=== PATIENT | female | born 1995 | race Caucasian/White ===

== ENCOUNTER → 2018-03-21 15:43 | Outpatient (CLI) | payer OTHER, SELFPAY ==
--- NOTE | 2018-03-21 16:26 | XR_ITS ---
EXAM: XR cervical spine 5V HISTORY: Neck pain ITS.REASON: BACK AND NECK PAIN ORDERING PHYSICIAN: Brianna Herrera PATIENT AGE: 22 years COMPARISON: None FINDINGS: Normal alignment. No fracture or dislocation. No lytic or blastic change. No significant degenerative change. The disc spaces are preserved. C7 is not well-visualized on the lateral view. There is a faint outline of C7 seen on the swimmer's view which is normal in alignment. Neural foramina are widely patent IMPRESSION: Negative cervical spine
--- NOTE | 2018-03-21 16:26 | XR_ITS ---
EXAM: XR thoracic spine 3V HISTORY: ITS.REASON: BACK AND NECK PAIN Comparison: None FINDINGS: Normal alignment. No fracture or dislocation. No lytic or blastic change. There is mild degenerative disc disease in the midthoracic spine with decrease in the disc space and mild osteophyte formation. IMPRESSION: 1. No acute finding. 2. Mild degenerative disc disease midthoracic spine
--- NOTE | 2018-03-21 16:26 | XR_ITS ---
EXAM: XR lumbar spine min 4V HISTORY: Low back pain ITS.REASON: BACK AND NECK PAIN ORDERING PHYSICIAN: Brianna Herrera PATIENT AGE: 22 years COMPARISON: None FINDINGS: Normal alignment. No fracture or dislocation. No lytic or blastic change. No significant degenerative change. The disc spaces are preserved. Unremarkable SI joints IMPRESSION: Negative lumbar spine
[2018-03-21 16:39] LABS: Activated Partial Thrombo Time 24.3 seconds (23.6-34.0); INR 0.91 (0.9-1.1); Prothrombin Time 9.4 seconds (9.4-11.8)
[2018-03-21 16:54] LABS: Basophils % 0.3 % (0.1-2.0); Eosinophils # 0.1 K/mm3 (0.0-0.4); Eosinophils % 1.4 % (0.1-12.0); Hematocrit 40.2 % (37.0-47.0); Hemoglobin 13.4 g/dL (12.2-16.2); Lymphocytes # 2.5 K/mm3 (0.7-4.5); Lymphocytes % 26.7 K/mm3 (10-50); Mean Corpuscular HGB Conc 33.3 g/dL (31.8-35.4); Mean Corpuscular Hemoglobin 28.5 pg (27.0-31.2); Mean Corpuscular Volume 85.4 fl (81-99); Mean Platelet Volume 7.3 fl (7.4-10.4); Monocytes % 10.7 % (1.7-9.3); Neutrophils # 5.7 K/mm3 (1.8-7.8); Neutrophils % 60.9 % (37.0-80.0); Platelet Count 332 K/mm3 (142-424); Red Blood Count 4.71 M/mm3 (4.20-5.40); Red Cell Distribution Width 13.6 % (11.5-17.5); White Blood Count 9.3 K/mm3 (4.8-10.8)
[2018-03-21 18:11] LABS: Alanine Aminotransferase 49 U/L (12-78); Albumin Level 3.2 gm/dL (3.4-5.0); Albumin/Globulin Ratio 0.8 (1.1-1.8); Alkaline Phosphatase 84 U/L (46-116); Anion Gap 12.7 mEq/L (5-15); Aspartate Amino Transferase 28 U/L (15-37); Bilirubin,Total 0.2 mg/dL (0.2-1.0); Blood Urea Nitrogen 10 mg/dL (7-18); Calcium 9.1 mg/dL (8.5-10.1); Carbon Dioxide 26 mmol/L (21.0-32.0); Chloride 104 mmol/L (98-107); Chol/HDL Ratio 3.2 (1-3.5); Cholesterol 159 mg/dL (140-200); Creatinine,Serum 0.69 mg/dL (0.55-1.02); Estimated Glomerular Filt Rate 105 ml/min (>60); GFR (African American) 128 ML/MIN (>60); Glucose 91 mg/dL (74-106); HDL Cholesterol 50 mg/dL (29-89); LDL Cholesterol 64 mg/dL (0-130); Potassium 4.7 mmoL/L (3.5-5.1); Sodium 138 mmol/L (136-145); Thyroid Stimulating Hormone 0.95 uIU/ml (0.358-3.740); Total Protein,Serum 7.2 gm/dL (6.4-8.2); Triglycerides 223 mg/dL (30-200); VLDL Cholesterol 45 mg/dL (0-40)
== END ==
PROVIDERS: PCP Physician Assistant; Visit Provider Nurse Practitioner Family
DX: M54.9 Dorsalgia, unspecified (principal); M54.2 Cervicalgia; T14.8XXA Other injury of unspecified body region, initial encounter; F41.9 Anxiety disorder, unspecified
CPT/HCPCS: 36415; 72050; 72072; 72110; 80053; 80061; 84443; 85025; 85610; 85730

== ENCOUNTER 2018-03-28 07:48 | Outpatient (RCR) | payer OTHER, SELFPAY | END 2018-04-30 11:36 | disposition home or self-care (01) | LOC: PT 07:48 | PROVIDERS: Visit Provider Nurse Practitioner Family | DX: M54.5 Low back pain (principal) | CPT/HCPCS: 97163 ==

== ENCOUNTER → 2018-06-19 11:22 | Outpatient (CLI) | payer OTHER, SELFPAY ==
[2018-06-19 11:25] LABS: Adenovirus,PCR Not Detected (NotDetected); Bordetella Pertussis Not Detected (NotDetected); Chlamydophila Pneumoniae, PCR Not Detected (NotDetected); Coronavirus 229E Not Detected (NotDetected); Coronavirus NL63 Not Detected (NotDetected); Coronovirus HKU1,PCR Not Detected (NotDetected); Human Metapneumovirus Not Detected (NotDetected); Influenza A, PCR Not Detected (NotDetected); Influenza AH1, 2009 Not Detected (NotDetected); Influenza AH1, PCR Not Detected (NotDetected); Influenza AH3,PCR Not Detected (NotDetected); Influenza B, PCR Not Detected (NotDetected); Mycoplasma Pneumoniae, PCR Not Detected (NotDetected); Parainfluenza 1, PCR Not Detected (NotDetected); Parainfluenza 2, PCR Not Detected (NotDetected); Parainfluenza 3, PCR Not Detected (NotDetected); Parainfluenza 4, PCR Not Detected (NotDetected); Respiratory Syncytial Virus Not Detected (NotDetected); Rhinovirus/Enterovirus Not Detected (NotDetected)
[2018-06-19 15:56] LABS: Coronavirus OC43 Detected (NotDetected)
== END ==
PROVIDERS: PCP Nurse Practitioner Family; Visit Provider Nurse Practitioner Family
DX: R05 Cough (principal)
CPT/HCPCS: 87486; 87581; 87633; 87798

== ENCOUNTER → 2020-02-27 14:53 | Outpatient (CLI) | payer OTHER, SELFPAY ==
--- NOTE | 2020-02-27 14:59 | XR_ITS ---
PROCEDURE: XR WRIST RT 2V CLINICAL INDICATION: RIGHT WRIST PAIN COMPARISON: No exams were available for comparison FINDINGS: No fracture or dislocation. No lytic or blastic change. There is normal mineralization. The joint spaces are well-preserved. No significant degenerative/arthritic changes. No erosive changes evident. Other findings:None. IMPRESSION: No acute findings. Dictated by: Caden Esparza MD 02/27/2020 15:54 Caden Esparza MD in [facility] 02/27/2020 15:54
== END ==
PROVIDERS: PCP Nurse Practitioner Family; Visit Provider Nurse Practitioner Family
DX: M25.531 Pain in right wrist (principal)
CPT/HCPCS: 73100

== ENCOUNTER 2021-10-13 20:15 | Outpatient (CLI) | payer OTHER, SELFPAY ==
[2021-10-13 21:08] VITALS: BP 135/76; PULSE 102; RESP 18; TEMP 37.4; O2SAT 98
[2021-10-13 21:22] LABS: Microscopic, Urine URINE MICROSCOPIC (MICROSCOPIC)
[2021-10-13 21:51] LABS: Appearance,Urine CLEAR (Clear); Bilirubin,Urine Negative (Negative); Blood, Urine Negative (Negative); Color,Urine YELLOW (Yellow); Glucose,Urine (UA) Negative (Negative); Ketones,Urine Negative (Negative); Leukocyte Esterase,Urine Negative (Negative); Nitrate,Urine Negative (Negative); PH,Urine 7.5 (5.0-8.5); Protein,Urine Negative (Negative); Specific Gravity, Urine 1.015 (1.005-1.030); Urobilinogen,Urine 0.2 EU/dl (0.2)
[2021-10-13 22:01] LABS: Amphetamine/Metha Screen,Urine Negative ng/ml (<1000); Barbiturates Screen,Urine Negative ng/ml (<200); Fetal Fibronectin (Rapid) Negative (Negative)
[2021-10-13 22:02] LABS: Benzodiazepines Screen,Urine Negative ng/ml (<200); Cannabinoid Screen,Urine Negative ng/ml (<50)
[2021-10-13 22:03] LABS: Cocaine Screen,Urine Negative ng/ml (<300)
[2021-10-13 22:04] LABS: Methadone Screen,Urine Negative ng/ml (<300)
[2021-10-13 22:05] LABS: Opiate Screen,Urine Negative ng/ml (<300); Phencyclidine Screen,Urine Negative ng/ml (<25)
[2021-10-13 22:14] LABS: Bacteria,Urine Trace /lpf; WBC,Urine Occasional #/hpf (0-3)
== END 2021-10-13 21:56 | disposition home or self-care (01) ==
LOC: OBOUT 20:19 → OB 20:21
PROVIDERS: Visit Provider Obstetrics & Gynecology
DX: O47.02 False labor before 37 completed weeks of gestation, second trimester (principal); Z3A.26 26 weeks gestation of pregnancy
CPT/HCPCS: 59025; 80305; 81001; 82731; 96365; G0463

== ENCOUNTER 2022-02-24 12:25 | Emergency (ER) | payer OTHER, SELFPAY ==
[2022-02-24 12:28] VITALS: BP 147/75; PULSE 76; RESP 16; TEMP 36.9; O2SAT 100; BMI 27.4
[2022-02-24 12:35] VITALS: BMI 27.4
--- NOTE | 2022-02-24 12:44 | PC.NURSE ---
ANGEL DIAZ at
--- NOTE | 2022-02-24 12:47 | HMH.EDGENADL ---
Discharge Plan Disposition Patient Disposition: Home, Self-Care Condition: Good Prescriptions Prescriptions: New ibuprofen 600 mg tablet 600 mg PO Q6H PRN (Reason: moderate pain ) Qty: 20 0RF Referrals Follow up/Referrals: Dayanna Mccollum [Primary Care Provider] - See instructions Activity Restrictions/Add. Instructions Additional Instructions/Restrictions: Ibuprofen for pain. Additional instructions for BACK PAIN: See your physician for further care, call for appointment. Return immediately if back pain becomes intolerable, or if fever, numbness or weakness of your legs, loss of control of your bowels or bladder. Clinical Impressions Clinical Impression: Low back pain Instructions Patient Instructions: DI for Low Back Pain Discharge ED Provider: Ishan Hoover General Adult HPI General Chief complaint: PAIN Stated complaint: lower back pain Time Seen by Provider: 02/24/22 12:40 Mode of Arrival: Ambulatory Source of Information: Patient Limitations: No Limitations Description of Symptoms (Recalled from ER Triage Doc. by RN): Pt reports lower back pain that began this morning upon waking up. Pt reports pain is in the center of her lower back, reports pain worsens with movement. Pt states when she bends over pain radiates up her back. Pt describes pain as shapr in nature. Pt states has had decreased urination since yesterday, reports she only urinated x2 yesterday. Pt reports nausea. History of Present Illness HPI narrative: Reports midline lower back pain since she awakened this morning. The pain worsens with movement. Describes it as sharp. Denies any pain into her legs. No numbness or weakness. Denies loss of bowel or bladder control. No fever or dysuria. No injury recalled. She says that she cleaned the house yesterday. No prior significant back problems. She took a dose of Tylenol this morning. No significant prior back problems. Related Data Previous Rx's Medication Instructions Recorded ibuprofen 600 mg tablet 600 mg PO Q6H PRN moderate pain 02/24/22 #20 tabs Allergies Allergy/AdvReac Type Severity Reaction Status Date / Time No Known Allergies Allergy Verified 06/22/18 13:23 [facility] Surgical History (Updated 02/24/22 @ 12:56 by Carolin Ho RN) History of placement of ear tubes History of tonsillectomy Social History Smoking Status: Never smoker alcohol intake: never current occupational status: unemployed Travel in the last 8 weeks: None ROS Obtained: Yes Systems reviewed as appropriate & no additional complaints except as documented Constitutional Constitutional: Denies fever(s) and Denies weakness Respiratory Respiratory: Denies cough Gastrointestinal Gastrointestingal: Reports diarrhea and nausea; Denies abdominal pain or vomiting Genitourinary Female Genitourinary: Denies dysuria and Denies flank pain Musculoskeletal Musculoskeletal: Reports back pain, Denies numbness and Denies radiating pain into limb Neurologic Neurologic: Denies numbness and Denies weakness Physical Exam General General appearance: alert and in no apparent distress Respiratory Respiratory exam: Absent respiratory distress Cardiovascular Cardiovascular exam: Present regular rate Back Exam Back exam: Absent CVA tenderness (R), CVA tenderness (L), paraspinal tenderness or vertebral tenderness Neurological Exam Neurological exam: Present alert and oriented X3 Psychiatric Psychiatric exam: Present normal affect and normal mood Skin Skin exam: Present warm and dry Medical Decision Making Lupillo Inquiry Pt receiving controlled substance: No Vital Signs: 02/24/22 12:28 Temperature 98.5 F Temperature Source Oral Pulse Rate [Right Radial] 76 Respiratory Rate 16 Blood Pressure [Right Arm] 147/75 H Blood Pressure Mean [Right Arm] 99 Blood Pressure Source [Right Arm] Automatic Cuff Blood Pressure Position [Right Arm] Sitting 02 Sat by Pulse Oximetr
[2022-02-24 12:50] LABS: Microscopic, Urine URINE MICROSCOPIC (MICROSCOPIC)
[2022-02-24 12:51] LABS: Appearance,Urine CLEAR (Clear); Bilirubin,Urine Negative (Negative); Blood, Urine Negative (Negative); Color,Urine YELLOW (Yellow); Glucose,Urine (UA) Negative (Negative); Ketones,Urine Negative (Negative); Leukocyte Esterase,Urine 1+ (Negative); Nitrate,Urine Negative (Negative); Protein,Urine Negative (Negative); Specific Gravity, Urine <= 1.005 (1.005-1.030); Urobilinogen,Urine 0.2 EU/dl (0.2)
[2022-02-24 12:52] LABS: Urine Pregnancy, HCG Qual. Negative (Negative)
[2022-02-24 13:03] LABS: Bacteria,Urine Trace /lpf; WBC,Urine Occasional #/hpf (0-3)
[2022-02-24 13:16] VITALS: BP 131/71; PULSE 65; RESP 16; TEMP 36.6; O2SAT 98
== END 2022-02-24 13:18 | disposition home or self-care (01) ==
PROVIDERS: Emergency Provider Emergency Medicine; PCP Nurse Practitioner Family
DX: M54.50 Low back pain, unspecified (principal)
CPT/HCPCS: 81001; 81025; 87086; 99283

== ENCOUNTER 2023-06-13 10:25 | Outpatient (CLI) | payer OTHER, SELFPAY ==
[2023-06-13 10:52] LABS: Basophils # 0.1 K/mm3 (0-0.2); Basophils % 0.7 % (0.1-2.0); Eosinophils # 0.2 K/mm3 (0.0-0.4); Eosinophils % 2.7 % (0.1-12.0); Hematocrit 35.3 % (37.0-47.0); Hemoglobin 11.5 g/dL (12.2-16.2); Lymphocytes # 1.7 K/mm3 (0.7-4.5); Mean Corpuscular HGB Conc 32.6 g/dL (31.8-35.4); Mean Corpuscular Hemoglobin 24.9 pg (27.0-31.2); Mean Corpuscular Volume 76.3 fl (81-99); Monocytes # 0.8 K/mm3 (0.1-1.0); Monocytes % 10.7 % (1.7-9.3); Neutrophils # 4.5 K/mm3 (1.8-7.8); Neutrophils % 61.9 % (37.0-80.0); Platelet Count 342 K/mm3 (142-424); Red Blood Count 4.62 M/mm3 (4.20-5.40); Red Cell Distribution Width 15.2 % (11.5-17.5); White Blood Count 7.3 K/mm3 (4.8-10.8)
[2023-06-13 11:24] LABS: Albumin Level 3.5 g/dl (3.5-5.0); Albumin/Globulin Ratio 1.1 (1.1-1.8); Alkaline Phosphatase 81 U/L (38-126); Aspartate Amino Transferase 30 U/L (14-36); Bilirubin,Total 0.2 mg/dl (0.2-1.3); Estimated Glomerular Filt Rate 85 ml/min (>60); GFR (African American) 103 ML/MIN (>60); Globulin 3.1 g/dL (1.3-3.2); Glucose 97 mg/dl (74-100); Potassium 3.9 mmoL/L (3.5-5.1); Total Protein,Serum 6.6 g/dl (6.3-8.2)
[2023-06-13 11:42] LABS: Alanine Aminotransferase 27 U/L (12-78); Amylase 95 U/L (30-110); Anion Gap 6.9 mEq/L (5-15); Blood Urea Nitrogen 7 mg/dl (7-17); Carbon Dioxide 26 mmol/L (22.0-30.0); Chloride 106 mmol/L (98-107); Lipase 148 U/L (23-300); Sodium 135 mmol/L (136-145)
[2023-06-14 08:15] LABS: HBsAg Screen Negative (Negative); HCV Ab Non Reactive (Non Reactive); Hep A Ab, IGM Negative (Negative); Hep B Core Ab, IgM Negative (Negative)
== END 2023-06-13 23:59 ==
LOC: LAB 10:26
PROVIDERS: PCP Nurse Practitioner Family; Visit Provider Surgery
DX: R10.11 Right upper quadrant pain (principal)
CPT/HCPCS: 36415; 80053; 80074; 82150; 83690; 85025

== ENCOUNTER 2024-07-12 13:13 | Outpatient (CLI) | payer OTHER, SELFPAY ==
--- NOTE | 2024-07-12 13:16 | MM_ITS ---
PROCEDURE INFORMATION: Exam: MG Bilateral Screening 3D Mammography Exam date and time: 07/12/2024 1:23 PM Age: 29 years old Clinical indication: Screening exam TECHNIQUE: Imaging protocol: Bilateral Screening tomosynthesis and 2D mammography including computer-aided detection (CAD) when performed. COMPARISON: No relevant prior studies available. FINDINGS: MAMMOGRAPHY: Breast composition: There are scattered areas of fibroglandular density. Mass: No suspicious masses. Architectural distortion: None. Calcifications: No suspicious calcifications. Asymmetric density: None. Skin thickening: None. Axillary adenopathy: None. IMPRESSION: No mammographic evidence of malignancy. Annual screening is recommended unless otherwise clinically indicated. ASSESSMENT: BI-RADS Category 1: Negative.
== END 2024-07-12 23:59 | disposition home or self-care (01) ==
LOC: RAD 13:13
PROVIDERS: PCP Nurse Practitioner Family; Visit Provider Nurse Practitioner Family
DX: Z12.31 Encounter for screening mammogram for malignant neoplasm of breast (principal); Z80.3 Family history of malignant neoplasm of breast
CPT/HCPCS: 77063; 77067

== ENCOUNTER 2025-02-25 12:30 | Emergency (ER) | payer OTHER, SELFPAY ==
[2025-02-25 13:10] VITALS: BP 138/87; PULSE 88; RESP 18; TEMP 36.9; O2SAT 100; BMI 26.6
--- NOTE | 2025-02-25 13:15 | PC.NURSE ---
DR SUÁREZ AT BEDSIDE
--- OUTSIDE RECORDS SUMMARY | 2025-02-25 13:15 | XMS_ITS | Encounter Summary ---
Author Organization Healthcare Address [address] [place] [address] Care Team Providers Care Immigration Case Manager Name Role Phone Pcp, No Primary Care Provider Unavailabl e Encounter Details Date Type Department Care Team ([facility] st Contact Info) Description 03/13/2023 Lab Requisition [facility] [address] [place] [address] Josephine Howe MD [address] [place] [address] Unspecified general medical examination Social History Tobacco Use Types Packs/Day Years Used Date Smoking Tobacco: Never Passive Smoke Exposure: Past Smokeless Tobacco: Never Alcohol Use Standard Drinks/Week Comments Not Currently 1 (1 standard drink = 0.6 oz pur e alcohol) occasional/celebratory Education Answer Date Recorded What is the highest level of school you have completed or the highest degree you have received? 10th grade 03/12/2023 Comments No Sex and Gender Information Value Date Recorded Sex Assigned at Female 03/12/2023 11:46 PM EDT Legal Sex Female 8:53 PM EDT Gender Identity Female 03/12/2023 11:46 PM EDT Sexual Orientation Straight 03/12/2023 11 :46 PM EDT documented as of this encounter Functional Status * Calculated C-SSRS Risk Score (Lifetime/Recent) Answer Date of Assessment Author No Risk Indicated 03/13/2023 5:45 PM EDT Lucille Monreal RN * Question Answer Date of Assessment Author 1. Wish to be (Past 1 Month) No 023 5:45 PM EDT Lucille Monreal, RN 2. Non-Specific Active Suici harshal Thoughts (Past 1 Month) No 03/13/2023 5:45 PM EDT Lucille Monreal, RN 6. Suicidal Behavior (Lifetime) No 5:45 PM EDT Lucille Monreal, RN documented as of this encounter Plan of Treatment Not on file documented as of this encounter Procedures Procedure Name Priority Date/Time Associated Diagnosis Comments SOURCE, [facility] HCV QUANT PCR Routine 03/13/2023 5:25 AM EDT Unspecified general medical examination HC 418 HIV-1 AG W/COMB 1&2 AB Routine 03/13/2023 5:25 AM EDT Unspecified general medical examination SOURCE, [facility] HEPATITIS B S AG Routine 03/13/2023 5:25 AM EDT Unspecified general medical examination documented in this encounter Results * Source, [facility] HCV Quant PCR (03/13/2023 5:25 AM EDT) Pathologist [facility] Hepatitis C Virus (HCV) Quantitative Interpretation Not Detected Not Detected . 03/18/2023 4:44 AM EDT [facility] Hepatitis C Virus (HCV) Quantitative Viral Load Log Result <1.08 <1.08 log10 IU/mL 03/18/2023 4:44 AM EDT [facility] Hepatitis C Virus (HCV) Quantitative IU/mL Result <12 <12 IU/mL 03/18/2023 4:44 AM EDT [facility] Blood Venous blood specimen / Unknown 03/13/2023 5:25 AM EDT 03/13/2023 6:52 AM EDT Narrative [facility] - 03/18/2023 4:44 AM EDT The Brown M2000 HCV test is a Real Time in vitro nucleic acid amplification test for the quantitation of Hepatitis C Viral (HCV) RNA in human serum in HCV-infected individuals. It is intended for use as an aid in the management of HCV-infected individuals undergoing anti-viral therapy. The dynamic range for this test is log10 = 1.08 to 8.00 and/or 12 to 100,000,000 IU/mL. The limit of detection (LOD) for this assay is 12 IU/mL and the limit of quantitation (LOQ) is 12 IU/mL. This assay is FDA approved for clinical use. us Josephine Howe MD LAB BLOOD ORDERABLES Final Re sult Performing Organization Address City/[facility]/ZIP Co de Phone Number [facility] [address] [place] [address] * Source, [facility] Hepatitis B S AG (03/13/2023 5:25 AM EDT) Hepatitis B Surf Antigen Negative Negative 03/13/2023 7:28 AM EDT [facility] Blood Venous blood specimen / Unknown 03/13/2023 5:25 AM EDT 03/13/2023 6:52 AM EDT us Josephine Howe MD LAB BLOOD ORDERABLES Final Re sult Performing Organization Address [facility] Co de Phone Number [facility] [address] [place] [address] * Source, [facility] HIV AB/AG w/Reflex to HIV1/2 Antibody Differentiation (03/13/2023 5:25 AM EDT) HIV 1 & 2 Antibody/Anti gen Screen Non Reactive Non Reactive 03/13/2023 7:29 AM EDT [facility] Blood Venous blood specimen / Unknown 03/13/2023 5:25 AM EDT 03/13/2023 6:52 AM EDT us Josephine Howe MD LAB BLOOD ORDERABLES Final Re sult Performing Organization Address City/[facility] Co de Phone Number [facility] [address] [place] [address] documented in this encounter Visit Diagnoses Diagnosis Unspecified general medical examination documented in this encounter Care Teams Immigration Case Manager Relationship Specialty Start Date End Date Pcp, Radha [address] [place] [address] PCP - General Family Medicine 03/13/22 documented as of this encounter
--- OUTSIDE RECORDS SUMMARY | 2025-02-25 13:15 | XMS_ITS | Clinical Summary ---
Author Organization [facility] Address [address] [place] [address] Care Team Providers Care Blood Bank Coordinator Name Role Phone Pcp, No Primary Care Provider Unavailabl e Allergies No known active allergies Medications 28-0.8 MG tablet Take 1 tablet by mouth 1 (one) time each day. 02/10/2023 Active sertraline (Zoloft) 25 MG tablet Take 1 tablet (25 mg) by mouth 1 (one) time each day. 02/10/2023 Active acetaminophen (Tylenol) 325 MG tablet Take 2 tablets (650 mg) by mouth every 6 (six) hours if needed for pain. 60 tablet 1 03/15/2023 Active ferrous sulfate 324 MG tablet delayed-release Take 1 tablet (324 mg) by mouth 1 (one) time each day with breakfast. Do not crush, chew, or split. 30 tablet 11 03/15/2023 Active docusate sodium (Colace) 250 MG capsule Take 1 capsule (250 mg) by mouth 2 (two) times a day if needed for constipation . 30 capsule 03/15/2023 Active hydrOXYzine pamoate (Vistaril) 25 MG capsule Take 1 capsule (25 mg) by mouth every 6 (six) hours if needed for anxiety for up to 10 days. 30 capsule 03/15/2023 Active busPIRone (Buspar) 10 MG tablet Take 1 tablet (10 mg) by mouth 2 (two) times a day if needed. Active Active Problems Problem Noted Date Diagnosed Date care following delivery 07/2022 Immunizations Immunization Administration Dates Next Due Influenza, injectable, quadrivalent 03/01/2017 Influenza, intradermal, quadrivalent, preservati ve free 03/01/2017 Influenza, seasonal, injectable 05/15/2007 Tdap 03/14/2023 Family History Medical History Relation Name Comments Breast cancer Maternal Grandmother deceas ed 2003 Breast cancer Paternal Grandmother deceas ed 2020 Breast cancer Sister 2022 Relation Name Status Comments Brother Alive Father Alive Maternal Grandfather Alive Maternal Grandmother Mother Alive Paternal Grandmother Sister Social History Tobacco Use Types Packs/Day Years Used Date Smoking Tobacco: Never Passive Smoke Exposure: Past Smokeless Tobacco: Never Tobacco Cessation:Counseling Given: No Alcohol Use Standard Drinks/Week Comments Not Currently 1 (1 standard drink = 0.6 oz pur e alcohol) occasional/celebratory Blaine Depression Scale Answer Date Recorded Blaine Depression Scale Total 23 04/05/2023 The thought of harming myself has occurred to me . Sometimes 04/05/2023 Education Answer Date Recorded What is the highest level of school you have completed or the highest degree you have received? 10th grade 03/12/2023 Comments No Sex and Gender Information Value Date Recorded Sex Assigned at Female 03/12/2023 11:46 PM EDT Legal Sex Female 8:53 PM EDT Gender Identity Female 03/12/2023 11:46 PM EDT Sexual Orientation Straight 03/12/2023 11 :46 PM EDT Last Filed Vital Signs Vital Sign Reading Time Taken Comments Blood Pressure 122/78 04/05/2023 1:35 PM EDT Pulse 96 04/05/2023 1:35 PM EDT Temperature 37.5 C (99.5 F) 04/05/2023 1:35 PM EDT Respiratory Rate 22 04/05/2023 1:35 PM EDT Oxygen Saturation 98% 04/05/2023 1:35 PM EDT Inhaled Oxygen Concentration - - Weight 84 kg (185 lb 3 oz) 04/05/2023 1:35 PM ED T Height 162.6 cm (5' 4 ) 04/05/2023 1:35 PM EDT Body Mass Index 31.79 04/05/2023 1:35 PM EDT Plan of Treatment Health Maintenance Due Date Last Done Comments [facility]-HIV Screening 1994 [facility]-Hepatitis C Screening 1994 [facility]-Infant/Child/Adol SDOH Screenings 1994 [facility]-Obesity Intervention 2000 [facility]-Varicella Vaccines (1 of 2 - 13+ 2-dose series) 2007 [facility]- SDOH Screenings 2012 [facility]-Adult SDOH Screenings 2012 [facility]-Hepatitis B Vaccines (1 of 3 - 19+ 3-dose series) 2013 [facility]-Pap Smear 2015 HPV Vaccines (1 - 3-dose SCD M series) 2021 [facility]-Depression Screening 04/05/2024 04/05/2023 [facility]-Cervical Cancer Screening 2024 [facility]-HPV/Cotest 2024 [id number]-[id number]-12 Vaccine ( - 2023- season) 2025 [facility]-Influenza Vaccine (#1) 02/10/202503/01, 05/15/2007 [facility]-DTaP,Tdap,and Td Vaccine s (2 - Td or Tdap) 03/14/2033 03/14/2023 [facility]-Zoster Vaccines (1 of 2) 2044 [facility]-HIB Vaccines Aged Out No longer e ligible based on patient's age to complete this topic [facility]-Hepatitis A Vaccines Aged Out No longer eligible based on patient's age to complete this topic [facility]-IPV Vaccines Aged Out No longer e ligible based on patient's age to complete this topic [facility]-Pneumococcal Vaccine: Pediatrics (0 to 5 Years) and At-Risk Patients (6 to 49 Years) Aged Out No longer eligible b ased on patient's age to complete this topic [facility]-Rotavirus Vaccines Aged Out No lo nger eligible based on patient's age to complete this topic Insurance [employer] [facility] MEDICAID Advance Directives * Full Code (Latest Code Status on File) Date Activated Date Inactivated Comments 03/13/2023 3:43 AM 03/15/2023 5:58 PM Question Answer Comments Patient has decision-making capacity? Yes Care Teams Blood Bank Coordinator Relationship Specialty Start Date End Date Pcp, No [address] [place] [address] PCP - General Family Medicine 03/13/22
--- NOTE | 2025-02-25 13:22 | [facility].EDGENADL ---
Discharge Plan Disposition Patient Disposition: Home, Self-Care Prescriptions Prescriptions: New nitrofurantoin macrocrystal 100 mg capsule 100 mg PO BID 5 Days Qty: 10 0RF Rx Instructions: must administer with a meal/food Referrals Follow up/Referrals: Dayanna Mccollum [Primary Care Provider, Medical] - See instructions Activity Restrictions/Add. Instructions Additional Instructions/Restrictions: You were found to have a mild urinary tract infection. I am putting you on a 5-day course of antibiotics. Take this as prescribed. In addition to this, you can take Tylenol and ibuprofen to help with symptoms. Continue to drink plenty of fluids. Follow-up with your primary care physician if symptoms do not improve. If you develop any new or worsening symptoms, or if you become concerned for your help for any reason, return to the emergency department for evaluation peer Clinical Impressions Clinical Impression: Urinary tract infection Instructions Patient Instructions: DI for Low Back Pain Print Language Print Language: Tajik Discharge ED Provider: [facility] HPI General Chief complaint: Back Pain/Injury Stated complaint: Mid Back Pain - no accident Time Seen by Provider: 02/25/25 13:12 History of Present Illness HPI narrative: Rosangela Ward is a 29-year-old female with a history of tubal ligation, , tonsillectomy who presents to the emergency department for complaints of back pain. Patient is there for last 2 to 3 days,she has had intermittent pains down both sides of the back radiating down to her lower back on both sides. She denies any burning with urination or changes in urinary frequency but states that she took a pill last night the changes the color of her urine for possible UTI. She states that she does have a history of gallbladder issues and intermittently has flares and was told that she needs her gallbladder removed but states that this feels differently. She denies any abdominal pain. She denies any vomiting. She states that she has been waking up in cold chills over the past couple this morning. Related Data Previous Rx's ?Medication ?Instructions ?Recorded nitrofurantoin macrocrystal 100 mg 100 mg PO BID 5 days #10 caps 02/25/25 capsule Allergies Allergy/AdvReac Type Severity Reaction Status Date / Time No Known Allergies Allergy Verified 06/13/23 10:00 [facility] Disclaimer: The information contained in this section may have been updated after the patient was seen, as this information can be updated by other users. Surgical History (Updated 06/13/23 @ 10:01 by NORTH Barakat) History of History of tubal ligation History of tonsillectomy History of placement of ear tubes Social History Smoking Status: Never smoker alcohol intake: never current occupational status: unemployed Travel in the last 8 weeks?: None Have you lived/traveled outside [place] in past 30 days?: No Contact w/someone who lives/traveled outside [place] past 30 days?: No Exposure to someone with infectious disease in past 14 days?: No Do you have a fever (greater than 100.4 F or 38 C)?: No Have you tested positive for COVID-19?: No Exposed to someone with COVID-19 in past 14 days?: No Do you have a sore throat?: No Do you have a cough?: No Do you have any weakness?: No Do you have any diarrhea?: No Are you experiencing any unusual bleeding?: No Do you have any muscle aches/pain?: No Do you have any abdominal pain?: No Are you experiencing loss of taste or smell?: No Other Medical History Have you received the Flu Vaccine for this season: No Have you received the Pneumonia Vaccine: No ROS Obtained: Yes Systems reviewed as appropriate & no additional complaints except as documented Physical Exam General General appearance: alert Respiratory Respiratory exam: Present normal lung sounds bilaterally; Absent respiratory distress Cardiovascular Cardiovascular exam: Present regular rate and normal rhythm Neurological Exam Neurological exam: Present alert and oriented X3 Medical Decision Making Medical Records Screening: Per USPSTF and CDC recommendations, given the prevalence of disease in our region, it is our hospital?s policy to screen for HIV and viral Hepatitis for all patients aged 18 and over and those with ongoing risk factors. [place] Inquiry Pt receiving controlled substance: No Vital Signs: 02/25/25 13:10 02/25/25 14:24 Temperature 98.4 F 98.1 F Temperature Source Oral Oral Pulse Rate 81 Pulse Rate [Radial] 88 Respiratory Rate 18 16 Blood Pressure 121/78 Blood Pressure [Left Arm] 138/87 Blood Pressure Mean [Left Arm] 104 Blood Pressure Source Automatic Cuff Blood Pressure Source [Left Arm] Automatic Cuff Blood Pressure Position Supine Blood Pressure Position [Left Arm] Sitting 02 Sat by Pulse Oximetry 100 Oxygen Delivery Method Room Air Room Air Lab Data Lab Results 02/25/25 13:26: WBC 6.3, RBC 4.55, Hgb 11.5 L, Hct 36.4 L, MCV 80.0 L, MCH 25.3 L, MCHC 31.6 L, RDW 13.2, Plt Count 340, MPV 9.3, Neut % (Auto) 66.1, Lymph % (Auto) 23.0, [place] % (Auto) 8.6, Eos % (Auto) 1.6, Baso % (Auto) 0.5, Neut # (Auto) 4.1, Lymph # (Auto) 1.4, [place] # (Auto) 0.5, Eos # (Auto) 0.1, Baso # (Auto) 0.0, Sodium 136, Potassium 3.8, Chloride 105, Carbon Dioxide 26, Anion Gap 8.8, BUN 4 L, Creatinine 0.70, Estimated Creat Clear 130, Estimated GFR 98, Est GFR ( Amer) 119, Glucose 94, Calcium 9.3, Total Bilirubin 0.3, AST 25, ALT 17, Alkaline Phosphatase 82, C-Reactive Protein 0.7, Total Protein 7.5, Albumin 3.9, Globulin 3.6 H, Albumin/Globulin Ratio 1.1, Serum HCG, Qual Negative, HCV Ab KEVAN w/Rflx PCR Qn Negative, HIV Ag/Ab Combo Qual Negative 02/25/25 13:33: Urine Color [place], Urine Appearance Sl cloudy, Urine pH 7.0, Ur Specific [place] 1.020, Urine Protein 2+ A, Urine Glucose (UA) 1+, Urine Ketones Trace, Urine Blood Negative, Urine Nitrate Positive A, Urine Bilirubin Negative, Urine Urobilinogen >=8.0, Ur Leukocyte Esterase Trace, Urine RBC None, Urine WBC Occasional, Ur Squamous Epith Cells Occasional, Urine Bacteria Trace 02/25/25 13:26 02/25/25 13:26 Orders (Tests/Meds): ED MEDICATIONS Discontinued Medications Generic Name Dose Route Start Last Admin Trade Name Freq PRN Reason Stop Dose Admin Ketorolac Tromethamine 15 mg 02/25/25 14:02 02/25/25 14:08 Ketorolac 15mg/Ml Vial IM 02/25/25 14:03 15 mg ONCE ONE Administration ORDERS Category Date Time Status POCUS Point of Care (ER Only) Stat Exams 02/25/25 13:20 Completed CBC w/Auto Diff [Complete Blood Count Auto Diff] Stat Lab 02/25/25 13:26 Completed CMP [Comprehensive Metabolic Panel] Stat Lab 02/25/25 13:26 Completed CRP [C-Reactive Protein] Stat Lab 02/25/25 13:26 Completed HIV Combo Stat Lab 02/25/25 13:26 Completed Hepatitis C Ab Qual. W/ RFX Stat Lab 02/25/25 13:26 Completed Serum [HCG Qualitative, Serum] Stat Lab 02/25/25 13:26 Completed UA [Urinalysis and Microscopic] Stat Lab 02/25/25 13:33 Completed Urine Culture Stat Micro 02/25/25 13:33 Received Medical Decision Narrative: Rosangela Ward is a 29-year-old female with a history of tubal ligation, , tonsillectomy who presents to the emergency department for complaints of back pain. Patient is there for last 2 to 3 days,she has had intermittent pains down both sides of the back radiating down to her lower back on both sides. She denies any burning with urination or changes in urinary frequency but states that she took a pill last night the changes the color of her urine for possible UTI. She states that she does have a history of gallbladder issues and intermittently has flares and was told that she needs her gallbladder removed but states that this feels differently. She denies any abdominal pain. She denies any vomiting. She states that she has been waking up in cold chills over the past couple this morning. On arrival, patient is hemodynamically stable, in no acute distress, afebrile, breathing comfortably. Physical exam shows an overall well-appearing female in no distress. She has no abdominal tenderness. She does have left CVA tenderness. No right CVA tenderness. Cardiopulmonary exam is unremarkable. The remainder of her physical exam is grossly unremarkable as well. Differential diagnosis includes, but is not limited to: Pyelonephritis, muscle strain, ectopic , viral illness/myalgias, ureterolithiasis, among others. The most morbid conditions were considered and workup was based on these. Workup in the Emergency Department included [id number] renal ultrasound, CBC, CRP, CMP, serum test, urinalysis. Patient was treated with 15 mg IV Toradol. Chronic care renal ultrasound showed no evidence of hydronephrosis. No renal stone is evident. See procedure note for details. Workup shows no leukocytosis, stable low hemoglobin at 11.5, hematocrit 36.4. Platelets within normal limits. Electrolytes within normal limits. Renal function within normal limits. Liver enzymes and bilirubin within normal limits. Negative test. Urinalysis cloudy in appearance with 2+ protein and positive nitrates. Occasional white blood cells on microscopy. No blood. On reassessment, patient remained in stable condition. Given the nitrates in her urine and location of her pain in the kidneys, it is likely that she has a urinary tract infection as a source of her symptoms. Will treat with course of Macrobid and instructions to take Tylenol and ibuprofen to help with pain. I instructed her to follow with her primary care physician if symptoms persist. Return precautions were given. All questions were answered. She demonstrated understanding and was agreeable this plan. She was then discharged from the emergency department in stable condition. Procedures Limited Ultrasound Interpretation:: Limited renal ultrasound Indication: A focused ultrasound of the kidneys was performed to evaluate for hydronephrosis and nephrolithiasis. The ultrasound was performed with the following indications, as noted in the H&P: Flank pain Identified structures: Left kidney Findings: -Normal Impression: -Normal limited renal ultrasound, no evidence of hydronephrosis or calculi Images were saved to permanent archive The study was technically adequate CPT: 79429-54 This study was performed by me, and I personally interpreted all images/videos. Based on my clinical judgement, these images were adequate and did not necessitate further imaging. Critical Care Critical Care Time Critical Care Time: No
[2025-02-25 13:40] LABS: Bilirubin,Urine Negative (Negative); Color,Urine ORANGE (Yellow); Glucose,Urine (UA) 1+ (Negative); Ketones,Urine TRACE (Negative); Leukocyte Esterase,Urine TRACE (Negative); Microscopic, Urine URINE MICROSCOPIC (MICROSCOPIC); PH,Urine 7.0 (5.0-8.5); Protein,Urine 2+ (Negative); Specific Gravity, Urine 1.020 (1.005-1.030); Urobilinogen,Urine >=8.0 EU/dl (0.2)
[2025-02-25 13:44] LABS: Hematocrit 36.4 % (37.0-47.0); Hemoglobin 11.5 g/dL (12.2-16.2); Immature Granulocytes % 0.2 %; Mean Corpuscular HGB Conc 31.6 g/dL (31.8-35.4); Mean Corpuscular Hemoglobin 25.3 pg (27.0-31.2); Mean Corpuscular Volume 80.0 fl (81-99); Nucleated Red Blood Cells % 0 %; Platelet Count 340 K/mm3 (142-424); Red Blood Count 4.55 M/mm3 (4.20-5.40); Red Cell Distribution Width-SD 37.6 fL; White Blood Count 6.3 K/mm3 (4.8-10.8)
[2025-02-25 13:49] LABS: Alanine Aminotransferase 17 U/L (12-78); Albumin Level 3.9 g/dl (3.5-5.0); Albumin/Globulin Ratio 1.1 (1.1-1.8); Alkaline Phosphatase 82 U/L (38-126); Anion Gap 8.8 mEq/L (5-15); Aspartate Amino Transferase 25 U/L (14-36); Bilirubin,Total 0.3 mg/dl (0.2-1.3); Blood Urea Nitrogen 4 mg/dl (7-17); Calcium 9.3 mg/dl (8.4-10.2); Carbon Dioxide 26 mmol/L (22.0-30.0); Chloride 105 mmol/L (98-107); Creatinine Clearance Estimated 130 mL/min (50-200); Creatinine,Serum 0.70 mg/dl (0.52-1.04); Estimated Glomerular Filt Rate 98 ml/min (>60); GFR (African American) 119 ML/MIN (>60); Globulin 3.6 g/dL (1.3-3.2); Glucose 94 mg/dl (74-100); Potassium 3.8 mmoL/L (3.5-5.1); Sodium 136 mmol/L (136-145); Total Protein,Serum 7.5 g/dl (6.3-8.2)
[2025-02-25 13:55] LABS: C-Reactive Protein 0.7 mg/L (0-4)
[2025-02-25 13:57] LABS: HCG Qualitative, Serum Negative (Negative)
[2025-02-25 14:05] LABS: Squamous Epithelial Cell,Urine Occasional #/hpf (0-5); WBC,Urine Occasional #/hpf (0-3)
[2025-02-25 14:06] LABS: Bacteria,Urine Trace /lpf
[2025-02-25] MEDS: KETOROLAC 15MG/ML VIAL 15 MG IM (14:08)
[2025-02-25 14:24] VITALS: BP 121/78; PULSE 81; RESP 16; TEMP 36.7; O2SAT 99
[2025-02-25 15:04] LABS: Hepatitis C Ab Qual. W/ RFX NEGATIVE (Negative)
== END 2025-02-25 14:25 | disposition home or self-care (01) ==
PROVIDERS: Emergency Provider Student in an Organized Health Care Education/Training Program; PCP Nurse Practitioner Family
DX: N39.0 Urinary tract infection, site not specified (principal); M54.6 Pain in thoracic spine
CPT/HCPCS: 80053; 81001; 84703; 85025; 86140; 86803; 87086; 87389; 96372; 99284; J1885